=== PATIENT | female | born 2000 | race American Indian/Alaskan Native ===

== ENCOUNTER 2021-08-31 19:09 | Emergency (ER) | payer SELFPAY ==
--- NOTE | 2021-09-01 03:14 | Emergency Department Report ---
Blank Doc - Documentation Documentation: SEE DOWN TIME CHART. COMPLETED
[2021-09-01 03:23] VITALS: BP 142/73
== END 2021-09-01 11:01 | disposition left against medical advice (07) ==
LOC: ED 19:09
DX: K64.9 Unspecified hemorrhoids (principal); Z53.21 Procedure and treatment not carried out due to patient leaving prior to being seen by health care provider

== ENCOUNTER 2022-03-02 15:12 | Emergency (ER) | payer SELFPAY ==
[2022-03-02] MEDS ORDERED: levETIRAcetam 500 MG TAB PO ONE (15:59)
[2022-03-02] MEDS ORDERED: ACETAMINOPHEN W/CODEINE 300-30 MG TAB PO ONE (16:00)
--- NOTE | 2022-03-02 16:17 | Emergency Department Report ---
ED Seizure HPI - General Chief Complaint: Seizure Stated Complaint: SEIZURE Time Seen by Provider: 03/02/22 15:58 Source: patient Mode of arrival: Ambulatory Limitations: No Limitations - History of Present Illness Initial Comments: 21 yo black female with a pmh of seizure disorder presents to ed requesting medication refill. She states that she has been taking Keppra for seizures but ran out several weeks ago. She states that she had a seizure yesterday then again this am. she denies any c/o at this time except for headache but states that she needs a refill of meds until she can get in to see neurology. Complaint: seizure -: Sudden Witnessed:: Yes Trauma: No Seizure History: known seizure disorder, history of non-compliance Place: home Possible Precipitating Event: medication (not takin prescribed medication) Associated Symptoms: other (headache) Treatments Prior to Arrival: none - Related Data Previous Rx's Medication Instructions Recorded Last Taken Type levETIRAcetam [Keppra TAB] 1,000 mg PO BID #60 tab 03/02/22 Unknown Rx Allergies Allergy/AdvReac Type Severity Reaction Status Date / Time No Known Allergies Allergy Verified 03/02/22 15:16 ED Review of Systems ROS: Stated complaint: SEIZURE Other details as noted in HPI Comment: All other systems reviewed and negative Constitutional: denies: chills, fever Eyes: denies: vision change Respiratory: wheezing. denies: orthopnea, shortness of breath, SOB with exertion, SOB at rest Cardiovascular: denies: chest pain, palpitations Gastrointestinal: denies: abdominal pain, nausea, vomiting Musculoskeletal: denies: back pain Neurological: headache ED Past Medical Hx - Medications Home Medications: Home Medications Medication Instructions Recorded Confirmed Last Taken Type levETIRAcetam [Keppra TAB] 1,000 mg PO BID #60 tab 03/02/22 Unknown Rx ED Physical Exam - General Limitations: No Limitations General appearance: alert, in no apparent distress - Head Head exam: Present: atraumatic, normocephalic, normal inspection - Eye Eye exam: Present: normal appearance. Absent: conjunctival injection - Neck Neck exam: Present: normal inspection, full ROM. Absent: tenderness, lymphadenopathy - Respiratory Respiratory exam: Present: normal lung sounds bilaterally. Absent: respiratory distress, wheezes, chest wall tenderness, accessory muscle use - Cardiovascular Cardiovascular Exam: Present: tachycardia, normal heart sounds - GI/Abdominal GI/Abdominal exam: Present: soft, normal bowel sounds. Absent: distended, tenderness - Extremities Exam Extremities exam: Present: normal inspection, normal capillary refill - Back Exam Back exam: Present: normal inspection - Neurological Exam Neurological exam: Present: alert, oriented X3, CN II-XII intact, normal gait, reflexes normal. Absent: motor sensory deficit - Psychiatric Psychiatric exam: Present: normal affect, normal mood - Skin Skin exam: Present: warm, dry, intact, normal color ED Course Vital Signs 03/02/22 03/02/22 15:14 17:16 Temperature 98.6 F Pulse Rate 104 H 100 H Respiratory 18 18 Rate Blood Pressure 109/57 112/62 [Left] O2 Sat by Pulse 97 99 Oximetry ED Medical Decision Making - Medical Decision Making 21 yo black female with a pmh of seizure disorder presents to ed requesting medication refill. She states that she has been taking Keppra for seizures but ran out several weeks ago. She states that she had a seizure yesterday then again this am. she denies any c/o at this time except for headache but states that she needs a refill of meds until she can get in to see neurology. Physical exam unremarkable. Dr. Anderson aware of patient and ok with to refill Keppra and have patient follow up with neurology. Patient was given 1000mg dose of keppra then d/alyce home with refill of keppra and advised to follow up with neurology for further evaluation and management and return to ed as needed. Critical care attestation.: If time is entered above; I have spent that time in minutes in the direct care of this critically ill patient, excluding procedure time. ED Disposition Clinical Impression: History of seizure disorder Disposition: HOME / SELF CARE / HOMELESS Is pt being admited?: No Does the pt Need Aspirin: No Condition: Stable Instructions: Levetiracetam tablets, Seizure, Adult, [id number] Additional Instructions: Take medications as prescribed. Follow-up with neurology for further evaluation and management. Return to the emergency department as needed. Prescriptions: levETIRAcetam [Keppra TAB] 1,000 mg PO BID #60 tab Referrals: GEETHA DONOVAN MD [Staff Physician] - 3-5 Days Forms: Work/School Release Form(ED) Time of Disposition: 16:17
[2022-03-02 17:57] VITALS: BP 112/62
== END 2022-03-02 17:57 | disposition home or self-care (01) ==
LOC: ED 15:12
DX: G40.909 Epilepsy, unspecified, not intractable, without status epilepticus (principal)
CPT/HCPCS: 99282